=== PATIENT | female | born 1995 | race Caucasian/White ===

== ENCOUNTER 2025-06-18 20:32 | Emergency (ER) | payer MEDICAID, OTHER ==
[~2025-06-18] VITALS: Ht 160 cm; Wt 54.4 kg
[2025-06-18 20:45] VITALS: BP 113/74; TEMP 98; O2SAT 99
[2025-06-18] MEDS ORDERED: IBUPROFEN 400 MG TABLET ONE (21:02)
[2025-06-18] MEDS ORDERED: TDAP [DIPH/PERTUSSIS/TET] 0.5 ML VIAL IM ONE (21:03)
[2025-06-18] MEDS: IBUPROFEN 400 MG TABLET PO ONE (21:15)
[2025-06-18] MEDS: LIDOCAINE HCL/PF 1% 30 ML VIAL TP ONE (21:15)
[2025-06-18] MEDS: TDAP [DIPH/PERTUSSIS/TET] 0.5 ML VIAL IM ONE (21:16)
== END 2025-06-18 21:41 | disposition home or self-care (01) ==
LOC: ER 20:36
DX: S81.012A Laceration without foreign body, left knee, initial encounter (principal); W18.30XA Fall on same level, unspecified, initial encounter; Y93.89 Activity, other specified; Y92.89 Other specified places as the place of occurrence of the external cause; Y99.9 Unspecified external cause status
CPT/HCPCS: 99284; 12001; 90471; 90715; 73130; 73564; J3490; A6403